=== PATIENT | male | born 1940 ===

== ENCOUNTER → 2025-05-09 10:29 | Outpatient (CLI) | payer OTHER ==
[2025-05-09 11:32] LABS: BASO % 0.9 % (0.1-1.2); EOS # 0.39 (0.04-0.54); EOS % 7.2 % (0.7-7.0); LYMPH # 1.33 (1.18-3.74); LYMPH % 24.4 % (19.3-53.1); MEAN PLATELET VOLUME 10.70 fl (9.4-12.4); MONO # 0.48 (0.24-0.82); MONO % 8.8 % (4.7-12.5); NEUT # 3.18 (1.56-6.13); NEUT % 58.3 % (34.0-71.1); RED CELL DISTRIBUTION WIDTH 18.2 % (11.6-14.4)
[2025-05-09 12:04] LABS: INR 1.12
== END | disposition home or self-care (01) ==
LOC: LAB 10:29
PROVIDERS: ATTEND Radiology Diagnostic Radiology
DX: C85.90 Non-Hodgkin lymphoma, unspecified, unspecified site (principal)

== ENCOUNTER → 2025-05-15 | Outpatient (CLI) | payer OTHER ==
[2025-05-15 07:00] VITALS: BP 125/65; O2SAT 100
[2025-05-15 08:30] VITALS: BP 107/61; O2SAT 97
[2025-05-15 08:45] VITALS: BP 86/51; O2SAT 97
[2025-05-15 09:00] VITALS: BP 108/83; O2SAT 97
== END | disposition home or self-care (01) ==
LOC: TOM 07:06
PROVIDERS: ATTEND Internal Medicine Hematology & Oncology
DX: D48.7 Neoplasm of uncertain behavior of other specified sites (principal)